=== PATIENT | female | born 1985 | race Caucasian/White ===

== ENCOUNTER 2024-04-19 15:11 | Outpatient (CLI) | payer OTHER, SELFPAY ==
[2024-04-19] VITALS (9 sets, daily range): BP systolic 102–127; BP diastolic 52–77; PULSE 67–74; RESP 7–20; TEMP 36.4; O2SAT 98–100
--- NOTE | 2024-04-19 16:00 | DI.RAD.S_ITS ---
PROCEDURE: PAIN JOINT INJECTION MID INDICATIONS: Coccydynia COMPARISON: Outside Facility, RG, MRI PELVIS W/O CONTRAST, 01/27/2024, 15:16. Outside Facility, RG, XR SACRUM COCCYX 2-3V, 01/14/2024, 9:41. TECHNIQUE: 3 intraoperative fluoroscopy images were obtained for needle placement guidance. FINDINGS: There is needle in the area of coccyx. IMPRESSION: Fluoroscopy for pain management. Dictated by: Susan Pritchett M.D. on 04/19/2024 at 21:15 Approved by: Susan Pritchett M.D. on 04/19/2024 at 21:16
[2024-04-19] MEDS: MIDAZOLAM 2 MG/2 ML VIAL IV (16:13)
[2024-04-19] MEDS: DEXAMETHASONE 10 MG/ML VIAL INJ (16:16)
[2024-04-19] MEDS: iopamidoL 15 ML VIAL 3 ML INJ (16:16)
[2024-04-19] MEDS: BUPIVACAINE 0.25% (PF) VIAL 5 ML INJ (16:16)
--- NOTE | 2024-04-19 16:31 | P.PCN_ITS ---
Date/Time/Diagnoses Date of procedure: 04/19/24 Time of procedure: 16:00 Procedure Notes Physician: Wilton Bolton Total Fluoroscopy time (seconds): 15 Total sedation minutes: 12 Procedure in detail & Post-procedure care: Coccygeal Joint Injection Indications: Phyllis is presenting for treatment of coccydynia with tailbone pain. Preoperative diagnosis: Coccydynia Postoperative diagnosis: Same Focused Examination: Ax3 Mood and affect are normal Vital Signs: VSS ASA: 2 Consent: Following review of allergies and potential side effects/complications, including, but not necessarily limited to, infection, allergic reaction, local tissue breakdown, stroke, temporary or permanent nerve injury, paralysis, and possible , the patient indicated that they understood and agreed to proceed.? An informed consent document was signed by the patient, witnessed by a nurse and placed in the patient's chart.? Additionally, other treatment options including medications and physical therapy were reviewed with the patient. All questions were answered. Site was then marked. Patient denies . Anesthesia: After review of previous anesthetic history and IV conscious sedation, the patient was deemed safe to proceed with today's procedure with IV conscious sedation. IV sedation was accomplished with midazolam 2 mg administered by the RN after order by Dr. Bolton. Sedation was titrated to patient comfort during the course of the procedure. Patient remained responsive to all verbal commands. Position: Prone Monitoring: NIBP, Pulse oximetry, 3 lead EKG Needle used: 25 gauge, 1.5 in hypodermic needle Contrast: Isovue 300-M 2mL Injectate: Dexamethasone 10 mg with 0.25% bupivacaine 4 mL Technique: The skin was prepped with chloraprep and then draped in a sterile fashion. Time out was performed as per protocol. Oxygen applied via NC. The entr y point for entering/approaching the sacrococcygeal joint was identified. Skin and subcutaneous structures of the needle entry site was then infiltrated with 3 mL of lidocaine 1%. Under AP and lateral control, the needle was guided through the sacrococcygeal joint to the anterior aspect of the joint. Contrast was then injected and the spread was consistent with the expected location of the ganglion impar. After negative aspiration, 3 mL of injectate were injected at this location. The needle was then withdrawn slightly so that the tip was within the sacrococcygeal joint. Intra-articular placement was confirmed with contrast. After negative aspiration, the remaining 2 mL of injectate was placed intra-articularly. There was no evidence for intravascular, peritoneal or spread within the intestines. The needles were then withdrawn. The patient expressed no unusual discomfort or paresthesias during needle positioning or injection. Band-Aids applied to injection sites. EBL: less than 1 ml Complications: None Post Procedure: Patient was taken to the recovery and monitored. The patient was provided a Pain Log to continue to record the patient's response to the target- specific procedure prior to the patient's follow-up visit with the referring physician. Patient was stable upon discharge. Detailed post procedure instructions were provided. Patient was asked to call in the event of worsening pain, fever, weakness, numbness or bladder or bowel incontinence.
== END 2024-04-19 17:03 | disposition home or self-care (01) ==
PROVIDERS: PCP Nurse Practitioner Family; Referring Provider Anesthesiology; Visit Provider Anesthesiology
DX: M53.3 Sacrococcygeal disorders, not elsewhere classified (principal)
CPT/HCPCS: 20605; 77002; 99152; J1100; J2250; J3490